=== PATIENT | female | born 1930 | race Caucasian/White ===

== ENCOUNTER 2016-08-08 12:44 | Emergency (ER) | payer MEDICARE, OTHER ==
--- NOTE | 2016-08-08 12:49 | EDPRACDOC ---
[id number] Source: [employer] Mode of Arrival:: Ambulance Allergies/Adverse Reactions: Allergies Allergy/AdvReac Type Severity Reaction Status Date / Time No Known Drug Allergies Allergy Unknown Verified 08/08/16 13:49 Home Medications: Ambulatory Orders Meclizine HCl [Antivert] 12.5 mg PO TID PRN 08/08/16 Metoprolol Tartrate [Lopressor] 25 mg PO BID 08/08/16 Simvastatin [Zocor] 40 mg PO HS 08/08/16 Tramadol HCl/Acetaminophen [Tramadol-Acetaminophn 37.5-325] 1 each PO TID PRN Trimethoprim 100 mg PO DAILY 08/08/16 - History of Present Illness Exact Onset of Symptoms: Known Onset: BETWEEN 11:30 AND 12 TODAY Symptoms Started: Reports: Suddenly Symptoms: Reports: Difficulty walking, Other (LEFT SIDE WEAKNESS) HPI: TOOK MEDS 11:30. WALKING FROM KITCHEN TO BATHROOM, FOUND ON FLOOR. FLACCID LEFT SIDE. LEFT FACIAL DROOP BROUGHT BY EMS. LAST SEEN 1700 YESTERDAY. PT ABLE TO TELL EMS THAT SHE TOOK HER MEDS AT 11:30. HEADACHE WITH NECK PAIN FOR 3 WEEKS. ED Past Medical History - History Reviewed Yes Nurses notes reviewed and agree except as marked EDM Review of Systems - Review of Systems ROS Unobtainable: Yes Review of systems cannot be obtained due to the patient's medical condition - Physical Exam Constitutional: Other (OBTUNDED) Oriented to: Unable to Test Last recorded Vital Signs: Oxygen Pulse Oxygen Saturation O2 Device Oxygen Flow Rate Fraction of Inspired Oxygen ( FIO2) - HEENT Head: Normal Eye Exam: Other (ROVE) Oropharynx: Normal Nose: No Symptoms Reported Neck: Normal - Respiratory/Cardiovascular Respiratory: Normal - CTA Cardiovascular: Tachycardia - GI Tenderness: Non tender - Musculoskeletal Back: Normal Extremities: Radial Pulse. negative: Clubbing, Cyanosis - Integumentary Skin: Normal, Warm, Dry Lymphatics: Normal - Neurologic Memory Impaired: Unable to Test Motor Function: Unable to Test, Other (FLACCID LEFT SIDE. RIGHT SIDE SPONTANEOUS MOVEMENT BOTH ARM AND LEG.) Cranial Nerve: Unable to Test Cerebellar: Unable to Test NIH Stroke Scale Re-evaluation 1 Level of Consciousness: Arousable LOC- Question: Answers Both Incorrect LOC Commands: Neither Task Correctly Best Gaze: Normal Visual: No Visual Loss Facial Palsy: Complete Paralysis Motor Arm LEFT: No Effort Against [place] Motor Arm RIGHT: No Drift Motor Leg LEFT: No Effort Against [place] Motor Leg RIGHT: No Drift Limb Ataxia: Absent Sensory: Mild to Mod Sensory Loss Best Language: Mild to Moderate Aphasia Dysarthria: Mild to Moderate Extinction and Inattention: Complete Abnormality (Neg Score: 19out of42 - Results 08/08/16 13:13 08/08/16 13:13 - EKG EKG #1 EKG Time: 13:11 -: Yes EKG interpreted by me Rate: bpm: 142 [place]: Normal Rhythm: Afib (WITH RVR) Block: None Hypertrophy: None ST: Nonsp Comments: ABNORMAL EKG - Additional Information CASE DISCUSSED; WITH DR IVANA RICO NEUROINTERVENTIONAL RAD. HE REC. TRANSFER TO [facility]. ALSO WANTS NEUROCONTACTED, IF NO QUICK REPLY, TRANSFER TO [facility] ED. 1430 - D/W DR CHARLEE GRAHAM, REC TPA, TRANSFER TO [facility] ED. HE IS AWARE LIKELY LARGE VESSEL OCCLUSION ED Critical Care Note - Critical Care Note Total Time (mins): 30 Comments: Due to the presence of and / or the risk of deterioration, my attendance to this patient required critical care time, including assessment/reassessment, documentation, ordering and interpreting ancillary studies, discussion with ED staff and consultants,patient and family, and excludes time spent on separately billable procedures. - Departure Yes I personally saw and evaluated the patient. Disposition: Trans. to Other Hospital ([facility]) Condition: Stable Final Diagnosis: Acute CVA (cerebrovascular accident), Acute left hemiparesis Referrals: None,No Provider [Primary Care Provider] - One Week Decision to Transfer Time: 14:45 (DR CHARLEE GRAHAM ACCEPTS [facility] COMING TO GET PATIENT. )
--- NOTE | 2016-08-08 13:06 | DIRPT ---
CLINICAL DATA: Left-sided weakness. Altered mental status. EXAM: CT HEAD WITHOUT CONTRAST TECHNIQUE: Contiguous axial images were obtained from the base of the skull through the vertex without intravenous contrast. COMPARISON: None. FINDINGS: No mass effect or midline shift. No evidence of acute intracranial hemorrhage, or infarction. Subcortical areas of hypoattenuation, particularly prominent in the right frontal lobe are likely due to chronic small vessel disease. Mild brain parenchymal atrophy. No abnormal extra-axial fluid collections. Basal cisterns are preserved. No depressed skull fractures. Visualized paranasal sinuses and mastoid air cells are not opacified. IMPRESSION: No acute intracranial abnormality. Atrophy, chronic microvascular disease. Electronically Signed By: Latrice Shah M.D. On: 08/08/2016 13:03
[2016-08-08 13:29] LABS: AUTOMATED BASOPHIL 0.1 % (0-2); AUTOMATED EOSINOPHIL 0.1 % (0-5); AUTOMATED MONOCYTE 4.3 % (3-10); AUTOMATED NEUTROPHIL 87.5 % (45-76); MPV 7.4 fL (7.4-10.4)
[2016-08-08 13:37] VITALS: TEMP 97.4; BMI 26.4
[2016-08-08 13:40] LABS: PARTIAL THROMB. TIME 18.7 SEC (22-35); PT-INR 1.1
[2016-08-08 13:41] LABS: BLOOD UREA NITROGEN 18 MG/DL (7-17); CALCIUM 9.8 MG/DL (8.4-10.2); CALCULATED OSMOLALITY 274 MOs/Kg (270-290); CHLORIDE 105 mEq/L (98-107); GLUCOSE 120 MG/DL (70-99); SODIUM LEVEL 141 mEq/L (137-146); TOTAL PROTEIN 7.4 G/DL (6.3-8.2)
[2016-08-08] MEDS ORDERED: LORAZEPAM 2 MG/ML VIAL IV ONE (13:46)
[2016-08-08] MEDS ORDERED: Pharmacy Review for Metformin - IV Contrast Given SCH (14:00)
--- NOTE | 2016-08-08 14:18 | DIRPT ---
CLINICAL DATA: Recent stroke-like symptoms EXAM: PORTABLE CHEST - 1 VIEW COMPARISON: 04/05/2007 FINDINGS: Cardiac shadow is at the upper limits of normal in size. Elevation of the right hemidiaphragm is noted. No focal infiltrate is seen. IMPRESSION: No active disease. Electronically Signed By: Rafael Aguila M.D. On: 08/08/2016 14:15
[2016-08-08] MEDS ORDERED: DILTIAZEM 25 MG/5 ML VIAL IV ONE ×2 (14:36→14:37)
[2016-08-08] MEDS ORDERED: METOPROLOL 5 MG/5 ML SDV IV ONE (14:58)
[2016-08-08] MEDS ORDERED: Diltiazem HCl 100 MG in D5W 100 ML IV SCH (14:59)
[2016-08-08] MEDS ORDERED: ALTEPLASE 100 MG IV ONE (15:00)
[2016-08-08] MEDS ORDERED: ALTEPLASE 100 MG VIAL IV ONE (15:00)
--- NOTE | 2016-08-08 15:03 | DIRPT ---
CLINICAL DATA: 85-year-old female found unresponsive with left-sided weakness. Initial encounter. EXAM: CT ANGIOGRAPHY HEAD AND NECK TECHNIQUE: Multidetector CT imaging of the head and neck was performed using the standard protocol during bolus administration of intravenous contrast. Multiplanar CT image reconstructions and MIPs were obtained to evaluate the vascular anatomy. Carotid stenosis measurements (when applicable) are obtained utilizing NASCET criteria, using the distal internal carotid diameter as the denominator. CONTRAST: 70 cc Isovue 370 COMPARISON: None. FINDINGS: CT HEAD Brain: Mild atrophy without hydrocephalus. No intracranial mass. Calvarium and skull base: Negative. Paranasal sinuses: Clear. Orbits: Post lens replacement. CTA NECK Aortic arch: 3 vessel arch with plaque and mild narrowing origin of the innominate and left subclavian artery. Right carotid system: Plaque right carotid bifurcation without significant narrowing. Ectatic right common carotid artery and internal carotid artery. Left carotid system: Mild narrowing proximal left common carotid artery. Ectatic left common carotid artery. Plaque left carotid bifurcation without hemodynamically significant stenosis. Ectatic left internal carotid artery. Vertebral arteries:Mild narrowing proximal left vertebral artery. Ectatic proximal vertebral arteries. Codominant vertebral arteries. Skeleton: No obvious fracture. Other neck: No worrisome primary neck mass or apical lung lesion. CTA HEAD Anterior circulation: Abrupt cut off of flow at the right middle cerebral artery bifurcation. Calcified plaque cavernous segment internal carotid artery bilaterally with mild narrowing. Posterior circulation: Ectatic vertebral arteries and basilar artery without high-grade stenosis. Venous sinuses: Patent. Anatomic variants: Negative. Delayed phase: As above. IMPRESSION: Large right middle cerebral artery distribution infarct without hemorrhage. The patient is at risk for development of hemorrhage given the size of the infarct. Abrupt cut off of flow at the right middle cerebral artery bifurcation. Ectatic common carotid arteries and internal carotid arteries. Carotid bifurcation plaque without hemodynamically significant stenosis. These results were called by telephone at the time of interpretation on 08/08/2016 at 2:[address] TITUS LARSON DO, who verbally acknowledged these results. Electronically Signed By: Armando Wesley M.D. On: 08/08/2016 15:01
[2016-08-08 15:28] VITALS: BP 151/67; PULSE 127
== END 2016-08-08 15:16 | disposition home or self-care (01) ==
LOC: ED 12:44
DX: I63.9 Cerebral infarction, unspecified (principal); G81.94 Hemiplegia, unspecified affecting left nondominant side; R29.719 NIHSS score 19
CPT/HCPCS: 36415; 37195; 70450; 70496; 70498; 71010; 80053; 82962; 84484; 85025; 85610; 85730; 93005; 96375; 99285; A9698; J2060; J2997; J3490